=== PATIENT | female | born 1925 | race Caucasian/White ===

== ENCOUNTER 2016-07-01 01:01 | Emergency (ER) | payer MEDICARE, OTHER ==
[~2016-07-01] VITALS: Ht 162.6 cm; Wt 54.5 kg
[~2016-07-01 01:01] MED LIST: ACET-2158 PO; AMIO200T PO; ASCO500C7 PO; BISA10SU58 PR; CALC-84 PO; CHOL10009 PO; CRANBERRY 405 MG PO; DIGO125T PO; DOCU-159 PO; ESCI5TAB10 PO; FLUT9.9S NASAL; HYDR-3612 PO; IPRA3AMP INHALATION; LISI2.5T59 PO; MAGN300C2 PO; METH500T8 PO; METO-448 PO; NA P118E PR; ONDA4TAB95 PO; POLY17PO6 PO; SENN-53 PO; ZOLP10TA5 PO
[2016-07-01 01:07] VITALS: Ht 162.6 cm; Wt 54.5 kg
[2016-07-01] MEDS ORDERED: SOD CHLORIDE 0.9% 500 ML IV STA (01:11)
[2016-07-01] MEDS ORDERED: ACETAMINOPHEN 500 MG TAB PO STA (01:33)
[2016-07-01 02:08] LABS: INR 1.22; PROTIME 15.5 Sec (12.2-14.2); PT RATIO 1.2
--- NOTE | 2016-07-01 02:08 | RADRPT ---
PROCEDURE: Chest. CLINICAL INDICATION: Chest pain. TECHNIQUE: Single frontal view of the chest was obtained. COMPARISON: 05/05/2016. FINDINGS: The cardiac silhouette is within normal limits. The aortic arch is calcified. There are chronic in creased interstitial markings bilaterally. There is no focal consolidation, vascular congestion or pleural effusion. There is no pneumothorax. IMPRESSION: Bilateral chronic increased interstitial markings without focal consolidation. Aortic atherosclerosis. .Leonel Lehman MD, MD Date Time Electronically viewed and signed by .Leonel Lehman MD, MD on 07/01/2016 02:08 .T/
[2016-07-01 02:09] LABS: PARTIAL THROMBOPLASTIN TIME 41.7 Sec (25.0-35.0)
[2016-07-01 02:10] LABS: BASOPHILS % 0.2 % (0.0-2.0); EOSINOPHILS # 0.1 10^3/ul (0.0-0.5); EOSINOPHILS % 0.6 % (0.0-7.0); HEMATOCRIT 31.1 % (37.0-47.0); HEMOGLOBIN 10.7 g/dl (12.0-16.0); LYMPHOCYTES # 1.7 10^3/ul (0.8-2.9); LYMPHOCYTES % 11.4 % (15.0-51.0); MEAN CORPUSCULAR HEMOGLOBIN 33.1 pg (29.0-33.0); MEAN CORPUSCULAR HGB CONC 34.3 g/dl (32.0-37.0); MEAN CORPUSCULAR VOLUME 96.3 fl (82.0-101.0); MEAN PLATELET VOLUME 10.6 fl (7.4-10.4); MONOCYTE # 2.5 10^3/ul (0.3-0.9); MONOCYTES % 17.1 % (0.0-11.0); NEUTROPHIL # 10.4 10^3/ul (1.6-7.5); NEUTROPHILS % 70.7 % (39.0-77.0); PLATELET COUNT 168 10^3/UL (140-440); RED BLOOD COUNT 3.23 10^6/ul (4.20-5.40); RED CELL DISTRIBUTION WIDTH 17.3 % (11.5-14.5); UNCORRECTED WBC 14.6 10^3/ul (4.8-10.8); WHITE BLOOD COUNT 14.6 10^3/ul (4.8-10.8)
--- NOTE | 2016-07-01 02:11 | RADRPT ---
PROCEDURE: Left elbow. CLINICAL INDICATION: Pain. TECHNIQUE: Three views including AP, lateral and oblique views of the left elbow were obtained. COMPARISON: 05/08/2016. FINDINGS: Again demonstrated are two pins and cerclage wire fixating an olecranon fracture. Alignment is kayden omical. There is no dislocation. Bone mineralization is decreased. IMPRESSION: Status post fixation of olecranon fracture with anatomic alignment. No evidence of new fracture. Osteopenia. .Leonel Lehman MD, Date Time Electronically viewed and signed by .Leonel Lehman MD, on 07/01/2016 02:10 .T/
[2016-07-01 02:15] LABS: CONDITION 1; LH ANALYZER COMMENTS 1
[2016-07-01 02:17] LABS: ALBUMIN 4.3 g/dl (3.3-4.9); CHLORIDE 102 mmol/L (97-110); SODIUM 141 mmol/L (135-144)
[2016-07-01 02:18] LABS: POTASSIUM 4.9 mmol/L (3.5-5.1)
[2016-07-01 02:20] LABS: ALANINE AMINOTRANSFERASE 22 IU/L (13-69); ALBUMIN/GLOBULIN RATIO 1.19; ALKALINE PHOSPHATASE 64 IU/L (42-121); ANION GAP 17 (8-16); ASPARTATE AMINO TRANSFERASE 47 IU/L (15-46); BILIRUBIN,INDIRECT 0.8 mg/dl (0-1.1); BILIRUBIN,TOTAL 0.8 mg/dl (0.2-1.3); BLOOD UREA NITROGEN 18 mg/dl (7-20); CARBON DIOXIDE 27 mmol/L (21-31); CREATININE 0.93 mg/dl (0.44-1.00); TOTAL PROTEIN 7.9 g/dl (6.1-8.1)
[2016-07-01 02:21] LABS: CALCIUM 8.8 mg/dl (8.4-10.2); GLUCOSE 99 mg/dl (70-220)
[2016-07-01 02:35] LABS: TROPONIN-I < 0.010 ng/ml (0.00-0.12)
--- NOTE | 2016-07-01 02:37 | RADRPT ---
PROCEDURE: CT scan facial bones CLINICAL INDICATION: Fall, head injury, left facial bruising. TECHNIQUE: A CT of the facial bones was performed without intravenous contrast. Coronal and sagitt al reformats were generated. CTDIvol: 29.48 mGy. DLP = 572.07 mGy-cm. COMPARISON: Brain CT performed concurrently.. FINDINGS: There is mild soft tissue swelling over the left zygomaticomaxillary region. A subtle fracture of th e posterior left maxillary sinus wall is noted. The left maxillary sinus is filled with blood. Sev eral foci of air are seen in the left public area supervisor space. 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 The patient is status post bilateral lens replacement surgery. There is mild to moderate opacification of the frontal sinuses. The nasal cavity is clear. There is leftward nasal septal deviation and a left-sided nasal septal spur. IMPRESSION: 1. Subtle fracture of the posterior left maxillary sinus wall. The left maxillary sinus is filled w ith blood and several foci of air are seen in the left public area supervisor space. 2. 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 RPTAT: HTAR .Justin Pierre MD, Date Time Electronically viewed and signed by .Justin Pierre MD, on 07/01/2016 02:37 .R/
[2016-07-01 02:44] LABS: ADD UMIC NO; URINE BILIRUBIN (Dip) NEGATIVE (NEGATIVE); URINE BLOOD (Dip) NEGATIVE (NEGATIVE); URINE COLOR LT. YELLOW (YELLOW); URINE GLUCOSE (Dip) NEGATIVE (NEGATIVE); URINE KETONES (Dip) NEGATIVE (NEGATIVE); URINE LEUKOCYTE ESTERASE (Dip) NEGATIVE (NEGATIVE); URINE NITRITE (Dip) NEGATIVE (NEGATIVE); URINE TOTAL PROTEIN (Dip) NEGATIVE (NEGATIVE); URINE UROBILINOGEN (Dip) 0.2 E.U./dL (0.1-1.0)
--- NOTE | 2016-07-01 02:46 | RADRPT ---
PROCEDURE: CT cervical spine without contrast. CLINICAL INDICATION: Trauma, neck pain. TECHNIQUE: A CT of the cervical spine was performed without intravenous contrast. Coronal and sag ittal reformats were generated. CTDIvol: 22.29 mGy. DLP: 536.13 mGy-cm. COMPARISON: No prior studies are available for comparison. FINDINGS: There is reversal of the cervical lordosis. No spondylolisthesis is seen. The vertebral body height s are maintained. No fracture or subluxation is seen. The prevertebral soft tissues are normal. There is moderate degenerative change at the atlantodental joint with a partially calcified panus be hind the dens. Severe disk space narrowing is seen at C4-C5, C5-C6, and C6-C7. Partial fusion across the disk spaces is noted at C5-C6 and C6-C7. There is fusion across the right C5-C6 facet joint. Moderate to severe neural foraminal narrowings are noted bilaterally at C3-C4, on the left at C4-C5, and bilaterally at C5-C6 and C6-C7. Degenerative disk disease leads to mild multilevel spinal canal stenosis from C3-C4 through C6-C7. There is low-attenuation blood in the carotid arteries. Mild to moderate left carotid bulb calcific ations are seen. There is a 1.3 cm hypodense right thyroid lesion, nonspecific. IMPRESSION: 1. No fracture or subluxation of the cervical spine. 2. Reversal of the cervical lordosis. 3. Mild multilevel spinal canal stenosis from C3-C4 through C6-C7. 4. Moderate to severe neural foraminal narrowings bilaterally at C3-C4, on the left at C4-C5, and b ilaterally at C5-C6 and C6-C7. 5. Low-attenuation blood in the carotid arteries, consistent with anemia. Correlation with CBC is recommended. 6. Nonspecific 1.3 cm hypodense right thyroid lesion. This may be further evaluated with ultrasoun d if clinically warranted. RPTAT: HTAR .Justin Pierre MD, MD Date Time Electronically viewed and signed by .Justin Pierre MD, MD on 07/01/2016 02:46 .R/
--- NOTE | 2016-07-01 02:50 | RADRPT ---
PROCEDURE: CT Brain without contrast. CLINICAL INDICATION: Fall, head injury, headache. TECHNIQUE: A CT of the brain was performed utilizing axial sections from the skull base through th e vertex without contrast. Multiplanar re-formations were generated. Images were reviewed on a high- resolution PACS workstation. CTDIvol: 42.43 mGy. DLP: 810.25 mGy-cm. COMPARISON: None available FINDINGS: There is moderate to severe generalized volume loss. No hydrocephalus is seen. There is no mass eff ect. No acute intracranial hemorrhage is identified. There is no extra-axial collection. No CT evid ence of acute infarction is identified. There is a chronic right frontal lobe infarction with invol vement of the anterior right insula. There is patchy low attenuation in the supratentorial white ma tter, a nonspecific finding which most likely represents the sequela of mild to moderate chronic bernard rovascular ischemic disease. There are minimal atherosclerotic arterial calcifications. The left maxillary sinus is filled with blood. The visualized mastoid air cells are clear. There is a subtle fracture of the posterior left maxillary sinus wall. Several foci of gas are seen in the l eft mica miner space. Mild soft tissue swelling is noted over the left zygomaticomaxillary region. T he patient is status post bilateral lens replacement surgery. IMPRESSION: 1. No acute intracranial pathology. 2. Moderate to severe generalized volume loss. 3. Mild to moderate chronic microvascular ischemic changes. 4. 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 5. Subtle fracture of the posterior left maxillary sinus wall. RPTAT: HTAR .Justin Pierre MD, Date Time Electronically viewed and signed by .Justin Pierre MD, MD on 07/01/2016 02:50 .R/
[2016-07-01 04:00] VITALS: PULSE 97; RESP 16
[2016-07-01] MEDS ORDERED: TYL500 PO (04:36)
[2016-07-01] MEDS ORDERED: DOXY100T20 PO (04:39)
[2016-07-01 04:50] VITALS: BP 116/66
--- NOTE | 2016-07-01 04:54 | ERD ---
ER Documentation Chief Complaint Date/Time DATE: 07/01/16 TIME: 04:40 Chief Complaint dizziness, s/p fall from [employer],/L arm/ HPI 89-year-old female came emergency room after mechanical fall [employer]. As patient describes it her left leg gave out as is sometimes does. She has no leg pain but complains of elbow pain only. He says that she did her head and hit the left side of her face to. She states that her falls been getting better she is working with physical therapy at her facility. She usually walks with a walker or holding onto a wheelchair. She's had no dizziness shortness of breath, dysuria out, chest pain or weakness. She denies any pain to her legs. She does say that she's had a recent cough for the last few days. Denies shortness of breath. ROS All systems reviewed and are negative except as per history of present illness. Medications Home Meds Active Scripts Doxycycline Hyclate* (Doxycycline Hyclate*) 100 Mg Tablet.dr, 100 MG PO BID for 10 Days, TAB Prov:MOJGAN MCELROY DO 07/01/16 Acetaminophen* (Tylenol*) 500 Mg Tab, 500 MG PO Q4H Y for MILD PAIN LEVEL 1-3, # 20 TAB Prov:MOJGAN MCELROY DO 07/01/16 Reported Medications [Cranberry Cap 405MG] No Conflict Check, 810 MG PO DAILY 05/05/16 Methocarbamol* (Methocarbamol*) 500 Mg Tablet, 500 MG PO Q12H, TAB 05/05/16 Escitalopram Oxalate* (Escitalopram Oxalate*) 5 Mg Tablet, 5 MG PO DAILY, #30 TAB 05/05/16 Ipratropium-Albuterol (Ipratropium-Albuterol) 0.5-3 Mg/3 Ml Ampul.neb, 3 ML INHALATION Q8, #30 VIAL 05/05/16 Fluticasone Propionate (Flonase Allergy Relief) 9.9 Ml [place].susp, 1 SPRAY NASAL DAILY, #1 BOTTLE TO EACH NOSTRIL 05/05/16 Docusate Sodium* (Docusate Sodium*) 100 Mg Capsule, 100 MG PO BID, #60 CAP 05/05/16 Zolpidem Tartrate* (Zolpidem Tartrate*) 10 Mg Tablet, 10 MG PO PRN, #30 TAB 11/12/16 Ondansetron Hcl* (Ondansetron Hcl*) 4 Mg Tablet, 4 MG PO Q6H Y for NAUSEA, TAB 05/05/16 Sennosides* (Senna Lax*) 8.6 Mg Tablet, 2 TAB PO QHS, TAB 08/04/14 Polyethylene Glycol* (Miralax*) 17 Gm Powd.pack, 17 GM PO DAILY, PACKET 08/04/14 Magnesium Oxide/Mag Aa Chelate (Magnesium 300 Mg Capsule) 300 Mg Capsule, 250 MG PO DAILY 08/04/14 Bisacodyl* (Dulcolax*) 10 Mg/Supp.rect Supp.rect, 10 MG [place] Q8 Y for CONSTIPATION , SUPP.RECT 08/04/14 Calcium Carbonate-Vitamin D3 (Calcium 500 + D Tablet) 1 Each Tablet, 1 TAB PO BID, TAB 08/04/14 Cholecalciferol (Vitamin D3) 1,000 Unit Capsule, PO DAILY 04/13/13 Acetaminophen (TYLENOL 325 MG TAB) 325 Mg Tab, 650 MG PO Q4H for PAIN LEVEL 1-5 04/13/13 Hydrocodone Bit-Acetaminophen* ([place]*) 1 Tab Tab, 5-325 MG PO Q6H PRN for PAIN LEVEL1-10 04/13/13 Na Phos,M-B/Na Phos,Di-Ba* (Fleet* Enema) 118 Ml Enema, 1 [place] Q24H for PRN 04/13/13 Ascorbic Acid* (Vitamin C*) 500 Mg Capsule.sa, 500 MG PO DAILY 01/27/13 Metoprolol Tartrate* (Lopressor*) 25 Mg Tab, 25 MG PO BID 01/27/13 Lisinopril* (Lisinopril*) 2.5 Mg Tablet, 2.5 MG PO DAILY 01/27/13 Digoxin* (Digitek*) 125 Mcg Tablet, 125 MCG PO DAILY 01/27/13 Amiodarone Hcl* (Amiodarone Hcl*) 200 Mg Tablet, 200 MG PO DAILY HOLD IF HR IS <60 BPM 01/27/13 Allergies Allergies: Coded Allergies: No Known Allergy (Unverified , 05/05/16) PMhx/Soc History of Surgery: Yes (see notes) Anesthesia Reaction: No Hx Neurological Disorder: Yes (PASSES OUT, LOSES CONSCIOUSNESS) Hx Respiratory Disorders: Yes (COPD) Hx Cardiac Disorders: Yes (A-fib,HTN,HF) Hx Psychiatric Problems: Yes (major depression,dementia) Hx Miscellaneous Medical Probl: Yes (L hand fx,generalized weakness,GERD, colonic polyps,pancreatic cyst,low back) Hx Alcohol Use: Yes (Hx) Hx Substance Use: No Hx Tobacco Use: No Smoking Status: Never smoker Physical Exam Vitals Vital Signs Date Time Temp Pulse Resp B/P Pulse Ox O2 Delivery O2 Flow Rate FiO2 07/01/16 04:00 97 16 101/47 98 Room Air 07/01/16 01:13 80 17 112/64 95 Room Air 07/01/16 01:07 98.6 96 18 111/65 94 Physical Exam Const: [] No distress Head: Atraumatic Eyes: Normal Conjunctiva ,e EOMI, PERRLA ENT: Normal External Ears, Nose and Mouth., Left cheek with bruising and tenderness in the maxillary area. Bilateral tympanic membranes clear without blood or fluid Neck: Full range of motion..~ No meningismus. Resp: Clear to auscultation bilaterally Cardio: Regular rate and rhythm, no murmurs Abd: Soft, non tender, non distended. Normal bowel sounds Skin: No petechiae or rashes Back: No midline or flank tenderness, no lesions or deformities Ext: No cyanosis, or edema him a 5 out of 5 strength all extremities., Mild left elbow tenderness. No tenderness palpation of any other joint or bone after thorough examination. Neur: Awake and alert and oriented 3, cranial nerves II through XII intact, cerebellar finger to nose intact, able to walk with help Psych: Normal Mood and Affect Result Diagram: 07/01/1612807/01/16 0129 Results 24 hrs Laboratory Tests Test 07/01/16 01:29 07/01/16 01:45 Activated Partial Thromboplast Time 41.7Sec Alanine Aminotransferase (ALT/SGPT) 22IU/L Albumin 4.3g/dl Albumin/Globulin Ratio 1.19 Alkaline Phosphatase 64IU/L Anion Gap 17 Aspartate Amino Transf (AST/SGOT) 47IU/L Basophils # Pending Basophils % Pending Blood Morphology Comment Blood Urea Nitrogen 18mg/dl Calcium Level 8.8mg/dl Carbon Dioxide Level 27mmol/L Chloride Level 102mmol/L Creatinine 0.93mg/dl Direct Bilirubin 0.00mg/dl Eosinophils # Pending Eosinophils % Pending Globulin 3.60g/dl Glucose Level 99mg/dl Hematocrit 31.1% Hemoglobin 10.7g/dl INR International Normalized Ratio 1.22 Indirect Bilirubin 0.8mg/dl Lymphocytes # Pending Lymphocytes % Pending Mean Corpuscular Hemoglobin 33.1pg Mean Corpuscular Hemoglobin Concent 34.3g/dl Mean Corpuscular Volume 96.3fl Mean Platelet Volume 10.6fl Monocytes # Pending Monocytes % Pending Neutrophils # Pending Neutrophils % Pending Nucleated Red Blood Cells # Pending Nucleated Red Blood Cells % Pending Platelet Count 15903^3/UL Potassium Level 4.9mmol/L Prothrombin Time 15.5Sec Prothrombin Time Ratio 1.2 Red Blood Count 3.2310^6/ul Red Cell Distribution Width 17.3% Sodium Level 141mmol/L Total Bilirubin 0.8mg/dl Total Protein 7.9g/dl Troponin I < 0.010ng/ml White Blood Count 14.610^3/ul Urine Bilirubin NEGATIVE Urine Clarity CLEAR Urine Color LT. YELLOW Urine Glucose NEGATIVE% Urine Hemoglobin NEGATIVE Urine Ketones NEGATIVE Urine Leukocyte Esterase NEGATIVE Urine Nitrite NEGATIVE Urine Specific [place] 1.010 Urine Total Protein NEGATIVE Urine Urobilinogen 0.2 E.U./dL Urine pH 7.0 Current Medications Medications (Trade) Dose Ordered Sig/Lesly Route PRN Reason Start Time Stop Time Status Last Admin Dose Admin Sodium Chloride (NS) 500 ml @ 500 mls/hr Q1H STAT IV 07/01/16 01:11 07/01/16 02:10 DC 07/01/16 01:33 Acetaminophen (Tylenol Tab) 1,000 mg ONCE STAT PO 07/01/16 01:33 07/01/16 01:34 DC 07/01/16 01:48 Procedures/MDM Mechanical fall in a patient is currently working with physical therapy. She suffered a axillary sinus on this fall and course therefore struck her head. She has a negative head CT for any acute hemorrhage or fracture. She was C- spine has no fractures or dislocations or subluxations. She complained only of elbow pain. She is given Tylenol for her. As resolved the pain. She was gait tested with myself and the nurse at the bedside and then he would not even use her weight was able to walk several steps and had no pain. She doesn't elevate her white cell count with a recent cough and I'm discharging her with doxycycline for acute bronchitis. Also giving acetaminophen for pain. She has minimal pain and is very talkative and well-appearing. Had a normal neurological exam. Being discharged back to her facility she can continue work with physical therapy to strengthen her legs. I very low suspicion for any acute coronary syndrome or cardiac arrhythmia as an etiology to the fall. Discharging her back to her facility with primary care follow-up, a disc copy of all the CT reports and follow up with Dr. Bob, her primary care physician within the next couple of days. EKG interpretation: Rate controlled A. fib rate of 76, indeterminate axis, no ST -T wave changes concerning for acute ischemia electronic device monitor interpretation: Rate controlled A. fib without arrhythmias Chest x-ray interpretation: No acute process, no fracture no pneumothorax no widened mediastinum, no infiltrates CT head interpretation: I see no acute process, no hemorrhage no mass or midline shift no skull fracture Left elbow x-ray interpretation: I see no acute process, no fracture dislocation or foreign bodies CT C-spine interpretation: Multilevel degenerative degenerative joint disease without acute fracture dislocation or subluxation CT maxillofacial interpretation: Left posterior maxillary sinus fracture with blood in the sinus. No orbital fractures. Departure Diagnosis: Primary Impression: Bronchitis Additional Impressions: Facial fracture Fall Condition: Stable Patient Instructions: Facial Fracture, Bronchitis, Antiobiotic Treatment (Adult ), HEAD INJURY, No Wake-Up (Adult), Fall Prevention Additional Instructions: Call your primary care doctor TOMORROW for an appointment during the next 1-2 days.See the doctor sooner or return here if your condition worsens before your appointment time. MOJGAN MCELROY DO Jul 01, 2016 04:51
== END 2016-07-01 05:07 | disposition home or self-care (01) ==
LOC: E/R 01:01
DX: S02.40DA Maxillary fracture, left side, initial encounter for closed fracture (principal); J40 Bronchitis, not specified as acute or chronic; I10 Essential (primary) hypertension; J44.9 Chronic obstructive pulmonary disease, unspecified; I50.9 Heart failure, unspecified; R42 Dizziness and giddiness; R40.2142 Coma scale, eyes open, spontaneous, at arrival to emergency department; R40.2252 Coma scale, best verbal response, oriented, at arrival to emergency department; R40.2362 Coma scale, best motor response, obeys commands, at arrival to emergency department; W18.39XA Other fall on same level, initial encounter; Y92.9 Unspecified place or not applicable
CPT/HCPCS: 36415; 70450; 70486; 71010; 72125; 73080; 80053; 81003; 84484; 85025; 85610; 85730; 93005; 99285; J7040; P9612

== ENCOUNTER 2016-07-09 02:55 | Emergency (ER) | payer MEDICARE, OTHER ==
[~2016-07-09] VITALS: Ht 157.5 cm; Wt 50.9 kg
[~2016-07-09 02:55] MED LIST changes: +DOXY100T20 PO; +TYL500 PO
[2016-07-09 02:57] VITALS: Ht 157.5 cm; Wt 50.9 kg
--- NOTE | 2016-07-09 03:03 | ERD ---
ER Documentation Chief Complaint Date/Time DATE: 07/09/16 TIME: 03:02 Chief Complaint nosebleed,from [facility],c/o bilat knee pain and PAINTER HPI This is an 82-year-old female brought in for nosebleed from his returns. Patient has no evidence of nosebleed currently. Hi history is per EMS transfer sheet and long-term transfer she ROS All systems reviewed and are negative except as per history of present illness. Medications Home Meds Active Scripts Doxycycline Hyclate* (Doxycycline Hyclate*) 100 Mg Tablet.dr, 100 MG PO BID for 10 Days, TAB Prov:LILIBETHMOJGAN DO 07/01/16 Acetaminophen* (Tylenol*) 500 Mg Tab, 500 MG PO Q4H Y for MILD PAIN LEVEL 1-3, # 20 TAB Prov:MOJGAN MCELROY DO 07/01/16 Reported Medications [Cranberry Cap 405MG] No Conflict Check, 810 MG PO DAILY 05/05/16 Methocarbamol* (Methocarbamol*) 500 Mg Tablet, 500 MG PO Q12H, TAB 05/05/16 Escitalopram Oxalate* (Escitalopram Oxalate*) 5 Mg Tablet, 5 MG PO DAILY, #30 TAB 05/05/16 Ipratropium-Albuterol (Ipratropium-Albuterol) 0.5-3 Mg/3 Ml Ampul.neb, 3 ML INHALATION Q8, #30 VIAL 05/05/16 Fluticasone Propionate (Flonase Allergy Relief) 9.9 Ml [place].susp, 1 SPRAY NASAL DAILY, #1 BOTTLE TO EACH NOSTRIL 05/05/16 Docusate Sodium* (Docusate Sodium*) 100 Mg Capsule, 100 MG PO BID, #60 CAP 05/05/16 Zolpidem Tartrate* (Zolpidem Tartrate*) 10 Mg Tablet, 10 MG PO PRN, #30 TAB 05/05/16 Ondansetron Hcl* (Ondansetron Hcl*) 4 Mg Tablet, 4 MG PO Q6H Y for NAUSEA, TAB 05/05/16 Sennosides* (Senna Lax*) 8.6 Mg Tablet, 2 TAB PO QHS, TAB 08/04/14 Polyethylene Glycol* (Miralax*) 17 Gm Powd.pack, 17 GM PO DAILY, PACKET 08/04/14 Magnesium Oxide/Mag Aa Chelate (Magnesium 300 Mg Capsule) 300 Mg Capsule, 250 MG PO DAILY 08/04/14 Bisacodyl* (Dulcolax*) 10 Mg/Supp.rect Supp.rect, 10 MG MA Q8 Y for CONSTIPATION , SUPP.RECT 08/04/14 Calcium Carbonate-Vitamin D3 (Calcium 500 + D Tablet) 1 Each Tablet, 1 TAB PO BID, TAB 08/04/14 Cholecalciferol (Vitamin D3) 1,000 Unit Capsule, PO DAILY 04/13/13 Acetaminophen (TYLENOL 325 MG TAB) 325 Mg Tab, 650 MG PO Q4H for PAIN LEVEL 1-5 04/13/13 Hydrocodone Bit-Acetaminophen* ([place]*) 1 Tab Tab, 5-325 MG PO Q6H PRN for PAIN LEVEL1-10 04/13/13 Na Phos,M-B/Na Phos,Di-Ba* (Fleet* Enema) 118 Ml Enema, 1 [place] Q24H for PRN 04/13/13 Ascorbic Acid* (Vitamin C*) 500 Mg Capsule.sa, 500 MG PO DAILY 01/27/13 Metoprolol Tartrate* (Lopressor*) 25 Mg Tab, 25 MG PO BID 01/27/13 Lisinopril* (Lisinopril*) 2.5 Mg Tablet, 2.5 MG PO DAILY 01/27/13 Digoxin* (Digitek*) 125 Mcg Tablet, 125 MCG PO DAILY 01/27/13 Amiodarone Hcl* (Amiodarone Hcl*) 200 Mg Tablet, 200 MG PO DAILY HOLD IF HR IS <60 BPM 01/27/13 Allergies Allergies: Coded Allergies: No Known Allergy (Unverified , 05/05/16) PMhx/Soc History of Surgery: Yes (see notes) Anesthesia Reaction: No Hx Neurological Disorder: Yes (PASSES OUT, LOSES CONSCIOUSNESS) Hx Respiratory Disorders: Yes (COPD) Hx Cardiac Disorders: Yes (A-fib,HTN,HF) Hx Psychiatric Problems: Yes (major depression,dementia) Hx Miscellaneous Medical Probl: Yes (L hand fx,generalized weakness,GERD, colonic polyps,pancreatic cyst,low back) Hx Alcohol Use: Yes (Hx) Hx Substance Use: No Hx Tobacco Use: No Smoking Status: Never smoker Physical Exam Vitals Vital Signs Date Time Temp Pulse Resp B/P Pulse Ox O2 Delivery O2 Flow Rate FiO2 07/09/16 02:57 97.5 76 18 94/53 98 Physical Exam Const: [] Head: Atraumatic Eyes: Normal Conjunctiva ENT: Normal External Ears, Nose and Mouth. Neck: Full range of motion..~ No meningismus. Resp: Clear to auscultation bilaterally Cardio: Regular rate and rhythm, no murmurs Abd: Soft, non tender, non distended. Normal bowel sounds Skin: No petechiae or rashes Back: No midline or flank tenderness Ext: No cyanosis, or edema Neur: Awake and alert Psych: Normal Mood and Affect Procedures/MDM Medical decision making: Patient comes for epistaxis that has since resolved. No active bleeding noted. Patient be discharged home. Departure Diagnosis: Primary Impression: Epistaxis Condition: Stable Patient Instructions: Epistaxis (Adult) Referrals: CARINE TEIXEIRA MD (PCP) PABLO GALLAGHER Jul 09, 2016 03:03
== END 2016-07-09 04:16 | disposition home or self-care (01) ==
LOC: E/R 02:55
DX: R04.0 Epistaxis (principal); I10 Essential (primary) hypertension; J44.9 Chronic obstructive pulmonary disease, unspecified; I50.9 Heart failure, unspecified
CPT/HCPCS: 99282

== ENCOUNTER → 2016-09-11 | Outpatient (CLI) | payer MEDICARE, OTHER ==
--- NOTE | 2016-09-12 20:27 | NEURPT ---
DATE: 09/11/2016 ELECTROENCEPHALOGRAPHIC REPORT PROCEDURE: EEG. This is an outpatient study. REQUESTING PHYSICIAN: Carine Bob MD INDICATION: An 89-year-old lady with history of falls, atrial fibrillation, behavioral disturbances . DESCRIPTION OF PROCEDURE: Routine outpatient study was recorded digitally. [id number] and scal p-to-ear montages were recorded and reviewed. All impedances were measured and recorded. Cap elect rodes were placed in accordance with International 10-20 system of electrode placement. FINDINGS: Symmetrically distributed background activity, approximately 8 cycles/sec of medium ampli tude was seen in the awake state. Eye opening attenuates the background. Photic stimulation produc es no definite driving. When patient gets drowsy and falls asleep, background rhythm gets slightly less organized, and occasional slower waves 4 to 6 cycles/sec were seen. No epileptiform transients were seen. No signs of ongoing electrographic seizures or lateralized sl owing. IMPRESSION: Normal study. Please correlate clinically. Dictated By: GIOVANNY MACKAY/NTS Conf#: [id number] DID#: [id number] CC: CARINE BOB MD;*EndCC*
== END | disposition home or self-care (01) ==
LOC: EEG 12:41
PROVIDERS: ATTEND Internal Medicine
DX: S02.91XA Unspecified fracture of skull, initial encounter for closed fracture (principal); W19.XXXA Unspecified fall, initial encounter
CPT/HCPCS: 95819